=== PATIENT | male | born 1995 | race Caucasian/White ===

== ENCOUNTER → 2020-11-02 | Outpatient (CLI) | payer OTHER ==
--- NOTE | 2020-11-02 16:14 | REP ---
INDICATION: PAIN COMPARISON: None. TECHNIQUE: AP, and lateral views of the thoracic spine FINDINGS: Alignment and kyphosis is maintained. Vertebral bodies intact. No acute fracture / compression injury or subluxation. No degenerative changes. Paravertebral soft tissues are normal. IMPRESSION: Normal thoracic spine series. <Electronically signed by Deshawn Galvez > 11/02/20 [id number]
--- NOTE | 2020-11-02 16:15 | REP ---
INDICATION: PAIN COMPARISON: None. TECHNIQUE: AP, lateral, coned-down views of the lumbar spine. FINDINGS: Three views of the lumbosacral spine demonstrate satisfactory alignment and lordosis without acute fracture / compression injury or subluxation. Mild focal disc space narrowing at L5-S1 should be correlated clinically. IMPRESSION: 1. No acute fracture / compression injury or subluxation. 2. Mild focal disc space narrowing at L5-S1 requires clinical correlation. <Electronically signed by Deshawn Galvez > 11/02/20 [id number]
[2020-11-02 22:34] LABS: HEMOGLOBIN A1c 5.4 %
[2020-11-02 22:49] LABS: ALBUMIN 4.4 GM/DL (3.2-5.2); ALT/SGPT 48 U/L (12-78); BILIRUBIN,TOTAL 0.4 MG/DL (0.2-1.0); BLOOD UREA NITROGEN 18 MG/DL (7-18); CALCIUM LEVEL 9.2 MG/DL (8.5-10.1); CARBON DIOXIDE LEVEL 30 MEQ/L (21-32); CHLORIDE LEVEL 106 MEQ/L (98-107); CHOLESTEROL LEVEL 208 MG/DL (<200); CHOLESTEROL RISK RATIO 4.333 (<5); CREATININE FOR GFR 0.99 MG/DL (0.70-1.30); GLOMERULAR FILTRATION RATE > 60.0 (>60); GLUCOSE, FASTING 85 MG/DL (70-100); HDL CHOLESTEROL 48 MG/DL (>40); LDL CHOLESTEROL 118 MG/DL (<100); NON-HDL-C 160 MG/DL; POTASSIUM SERUM 3.8 MEQ/L (3.5-5.1); SODIUM LEVEL 141 MEQ/L (136-145); TOTAL PROTEIN 7.8 GM/DL (6.4-8.2); TRIGLYCERIDES LEVEL 212 MG/DL (<150)
[2020-11-02 22:51] LABS: TOTAL 25(OH) VITAMIN D 15.1 NG/ML (30.0-100.0)
[2020-11-02 23:02] LABS: HEPATITIS B SURFACE ANTIGEN NEGATIVE (NEGATIVE)
[2020-11-02 23:30] LABS: HEPATITIS B CORE ANTIBODY IGM NEGATIVE (NEGATIVE)
[2020-11-02 23:31] LABS: HIV 1&2 SCREEN CENTAUR NEGATIVE (NEGATIVE)
[2020-11-02 23:32] LABS: HEPATITIS A ANTIBODY IGM NEGATIVE (NEGATIVE)
== END ==
LOC: M WUC 15:41
PROVIDERS: ATTEND Pediatrics
DX: M54.6 Pain in thoracic spine (principal); Z13.228 Encounter for screening for other metabolic disorders; Z11.3 Encounter for screening for infections with a predominantly sexual mode of transmission; E55.9 Vitamin D deficiency, unspecified; E78.5 Hyperlipidemia, unspecified